=== PATIENT | male | born 1980 | race Hispanic/Latino ===

== ENCOUNTER 2021-09-15 16:07 | Emergency (ER) | payer SELFPAY ==
--- NOTE | ~2021-09-15 | XR_ITS ---
EXAMINATION: XR chest 2V 09/15/2021 16:55 INDICATION: Dizziness PROCEDURE: 2 view chest COMPARISON: No prior studies for comparison. FINDINGS: The lungs are clear. The cardiomediastinal silhouette is within normal limits. There are no pleural effusions. There is no pneumothorax suspected. IMPRESSION: 1: NO ACUTE CARDIOPULMONARY DISEASE. Reviewed, dictated and finalized at location A.
--- NOTE | 2021-09-15 16:43 | ECG_ITS ---
Measurements Intervals [place] Rate: 94 P: 56 PA: 134 QRS: 61 QRSD: 97 T: 3 QT: 339 QTc: 425 Interpretive Statements SINUS RHYTHM ST ELEVATION IN ANTERIOR LEADS- PROBABLY EARLY REPOLARIZATION ABNORMALITY BORDERLINE ST-T WAVE ABNORMALITY- INFERIOR LEADS BASELINE ARTIFACT- I, II, III, AVR, AVL, AVF, V1-V6 BORDERLINE ECG Electronically Signed On 09-16-2021 7:45:09 CDT by Donaldo Herring D.O.
--- NOTE | 2021-09-15 17:01 | ED.DIZZY ---
HPI - Dizziness General Chief Complaint: Dizziness Stated Complaint: dizziness, Time Seen by Provider: 09/15/21 16:12 Source: patient, family and diversity intern History of Present Illness HPI Narrative: Patient presents with dizziness. Reports has had intermittent dizziness for the past several months however is worse over the past couple days. Patient reports movements is a heaviness sensation in his head sometimes he feels like he is going to pass out sometimes he feels off balance. His symptoms are sometimes associated with nausea he denies association with chest pain or shortness of breath denies any focal numbness or weakness he denies any vomiting or diarrhea denies any changes in appetite. He is unable to identify any clear aggravating or alleviating symptoms specifically association with position change. He is not have any known sick contacts no recent antibiotics no recent travel outside the area. Related Data Allergies Allergy/AdvReac Type Severity Reaction Status Date / Time No Known Drug Allergies Allergy Unknown Verified 09/15/21 17:46 Review of Systems Review of Systems: CONSTITUTIONAL: Denies fever, chills, or sweats. EYES: Denies visual changes, redness, or discharge. ENT: Denies rhinorrhea, congestion, sore throat, or otalgia. CARDIOVASCULAR: Denies chest pain, palpitations, or edema. RESPIRATORY: Denies cough or dyspnea. GASTROINTESTINAL: Denies abdominal pain, nausea, vomiting, or diarrhea. GENITOURINARY: Denies dysuria or hematuria. SKIN: Denies rash or itching. MUSCULOSKELETAL: Denies back pain, joint pain, or myalgia. NEUROLOGIC: Denies headache, numbness, or weakness. PSYCHIATRIC: Denies anxiety or depression. All systems reviewed & are unremarkable except as noted in HPI and below PMFSH Past Medical History Medical History (Updated 09/15/21 @ 19:13 by Jerod Davila MD) Hyperlipidemia Social History Social History (Updated 09/15/21 @ 17:03 by Jerod Davila MD) Smoking status: Never smoker Alcohol intake: current Substance use: never Exam Narrative: GENERAL: Well-appearing, well-nourished, and in no acute distress. HEAD: Normocephalic, atraumatic. EYES: PERRLA and EOMI. ENT: Nares clear, no rhinorrhea or epistaxis. Mucous membranes moist. NECK: Supple. No masses. No JVD CHEST: Clear to auscultation. No respiratory distress. No wheezes rales or rhonchi HEART: Regular rate and rhythm. No murmur heard. Normal peripheral pulses. ABDOMEN: Soft, nontender, nondistended, normal active bowel sounds. EXTREMITIES: Normal range of motion. No edema. SKIN: Warm, dry, no rash. NEURO: Cranial nerves II through XII are intact patient has 5 out of 5 strength in all extremities, sensation intact to light touch in all extremities alert and oriented x3. PSYCH: Normal mood and affect. Course Reevaluation(s) Reevaluation #1: Patient reports feeling improved results and imaging reviewed with patient. Patient comfortable with outpatient plan. Date: 09/15/21 Time: 19:10 Vital Signs Vital signs: Vital Signs Pulse Rate 83 09/15/21 19:10 Respiratory Rate 20 09/15/21 19:10 Blood Pressure 140/94 H 09/15/21 19:10 Pulse Oximetry 99 09/15/21 19:10 Pulse Rate 83 09/15/21 19:10 Respiratory Rate 20 09/15/21 19:10 Blood Pressure 140/94 H 09/15/21 19:10 Pulse Oximetry 99 09/15/21 19:10 MDM - Dizziness MDM Narrative Medical decision making narrative: H&P as above, vss, pt looks clinically well, exam without focal neurological deficits, labs clinically unremarkable, img clinically unremarkable, additional labs/img considered, symptomatic relief available as needed, patient is treated with meclizine and fluids on reevaluation pt continues to looks clinically well reports improvement in symptoms. Symptoms remain of unclear etiology he describes as presyncopal and symptoms. Given reassuring work-up is appropriate for continued outpatient supportive therapies patient educated on impo
[2021-09-15] MEDS: MECLIZINE HCL 25 MG TABLET PO (17:30)
[2021-09-15] MEDS: SODIUM CHLORIDE 0.9% IV 1,000 ML 999 ML IV CONT (17:31)
[2021-09-15 17:36] LABS: Basophils Percent Auto 0.8 % (0.2-1.2); Eosinophils Percent Auto 0.8 % (0-4.4); Hematocrit 44.4 % (42.0-52.0); Immature Granulocyte Absolute 0.01 K/mm3 (0.00-0.031); Immature Granulocyte Percent A 0.2 % (0-0.5); Lymphocytes Absolute Auto 1.25 K/mm3 (0.9-3.2); Lymphocytes Percent Auto 23.5 % (18.3-44.2); Mean Corpuscular HGB Conc 33.8 g/dl (32-36); Mean Corpuscular Hemoglobin 28.1 pg (26-34); Mean Corpuscular Volume 83.1 fl (80-100); Mean Platelet Volume 11.6 fl (7.4-10.4); Monocytes Absolute Auto 0.6 K/mm3 (0.1-0.6); Monocytes Percent Auto 10.5 % (2.6-8.5); Neutrophils Absolute Auto 3.4 K/mm3 (1.3-6.7); Neutrophils Percent Auto 64.2 % (45.5-73.1); Platelet Count Result 162 k/mm3 (150-375); Red Blood Count 5.34 M/mm3 (4.6-6.20); Red Cell Distribution Width 13.3 % (11.5-14.5); White Blood Count 5.3 K/mm3 (4.5-10.0)
[2021-09-15 17:47] LABS: Lactic Acid Reflex 0.9 mmol/L (0.7-2.1)
[2021-09-15 17:53] LABS: Add Urine Microscopic? YES; Appearance Urine Cloudy (Clear); Bilirubin Urine Negative (Negative); Blood Urine Negative (Negative); Color Urine Yellow (Yellow); Glucose Urine UA Negative (Negative); Ketones Urine Negative (Negative); Leukocyte Esterase Ur Negative LEU/UL (Negative); Nitrate Urine Negative (Negative); Protein Urine Negative (Negative); Specific Grav Ur 1.017 (1.001-1.035); Urobilinogen Urine Negative mg/dL (<2.0); WBC Urine 0-3 /hpf
[2021-09-15 17:54] LABS: Lipase 93 U/L (23-300)
[2021-09-15 17:55] LABS: Alanine Aminotransferase 20 U/L (4-50); Albumin Level 4.6 g/dL (3.5-5.1); Alkaline Phosphatase 85 U/L (38-126); Anion Gap 10 mmol/L (8-16); Aspartate Amino Transferase 28 U/L (17-59); Bilirubin,Total 0.4 mg/dL (0.2-1.3); Blood Urea Nitrogen 19 mg/dL (9-20); Calcium 9.5 mg/dL (8.4-10.2); Carbon Dioxide 26 mmol/L (22-30); Chloride 106 mmol/L (98-107); Estimated CRCL calculation 95 ml/min; Estimated Glomerular Filt Rate > 60; Glucose 109 mg/dL (65-110); Potassium 4.2 mmol/L (3.4-5.0); Sodium 142 mmol/L (137-145)
[2021-09-15 19:10] VITALS: BP 140/94; PULSE 83; RESP 20; O2SAT 99
--- NOTE | 2021-09-15 19:11 | PC.NURSE ---
Report received and care of pt assumed at this time.
[2021-09-15 19:29] VITALS: BP 123/90; PULSE 87; RESP 20; O2SAT 100
== END 2021-09-15 19:31 | disposition home or self-care (01) ==
PROVIDERS: Emergency Provider Emergency Medicine
DX: R42 Dizziness and giddiness (principal); E78.5 Hyperlipidemia, unspecified; R94.31 Abnormal electrocardiogram [ECG] [EKG]
CPT/HCPCS: 36415; 71046; 80053; 81001; 83605; 83690; 85025; 93005; 96360; 99284; A9270; J7030